=== PATIENT | male | born 1930 | race Caucasian/White ===

== ENCOUNTER → 2017-09-09 | Outpatient (CLI) | payer MEDICARE, OTHER ==
[~2017-09-09] MED LIST: ASPI-1441 PO; ASPI81TA86 PO; AZIT-1 PO; CHOL10005 PO; CLIN300C99 PO; DAR100 PO; FLU IM; FLU45SYR17 IM; KET10 PO; LOSA-37 PO; LOSA-51 PO; LOSA-57 PO; METH4TAB66 PO; METO-259 PO; METO25TA23 PO; METO25TA93 PO; NAP250 PO; OSE75 PO; PNEU0.5D3 IM; SIMV-49 PO; SIMV10TA98 PO; VIT-9 PO; VIT1CAPS38 PO; ZOST19404 SQ
--- NOTE | 2017-09-09 11:17 | RADIOLOGY IMAGING REPORT ---
FACILITY: [facility] PATIENT NAME: Miguel Donis : 1930 MR: [id number] V: [id number] EXAM DATE: ORDERING PHYSICIAN: MILENA SOW TECHNOLOGIST: Location: [facility] Patient: Miguel Donis : 1930 Visit/Account:[id number] Date of Sevice: 09/09/2017 Technique: HIP RIGHT HISTORY: hip pain and low back pain Comparison studies: None FINDINGS: There is no acute fracture. Degenerative changes are noted at the lumbosacral junction, sa croiliac joints and femoroacetabular joints. Specifically within the right hip there is joint space narrowing, sclerosis and marginal osteophytosis. Overall, there is decreased cortical mineralization consistent with osteopenia. IMPRESSION: 1. Degenerative changes as described above. Report Dictated By: Marcellus Zuniga DO at 09/09/2017 11:12 AM Report E-Signed By: Marcellus Zuniga DO at 09/09/2017 11:14 AM WSN:[email or web address]
--- NOTE | 2017-09-09 11:22 | RADIOLOGY IMAGING REPORT ---
FACILITY: [facility] PATIENT NAME: Miguel Donis : 1930 MR: [id number] V: [id number] EXAM DATE: ORDERING PHYSICIAN: MILENA SOW TECHNOLOGIST: Location: [facility] Patient: Miguel Donis : 1930 Visit/Account:[id number] Date of Sevice: 09/09/2017 Technique: LUMBAR SPINE 2 OR 3 VIEW HISTORY: hip pain and low back pain Comparison studies: Lumbar spine radiographs April 2008 FINDINGS: An age-indeterminate compression deformity is noted at the L3 vertebral body. This was not seen on the 2007 comparison radiographs. There is also slight progressive compression of the L4 awa tebral body. Multilevel degenerative changes are noted including endplate osteophytosis and interver tebral disc space narrowing. There is facet arthropathy most pronounced at L5-S1. IMPRESSION: 1. Age-indeterminate compression deformity of the L3 vertebral body and potentially the L4 vertebral body. 2. Degenerative changes as characterized above. Report Dictated By: Marcellus Zuniga DO at 09/09/2017 11:14 AM Report E-Signed By: Marcellus Zuniga DO at 09/09/2017 11:18 AM WSN:[email or web address]
== END ==
LOC: RAD 10:04
PROVIDERS: ATTEND Internal Medicine
DX: M85.88 Other specified disorders of bone density and structure, other site (principal)
CPT/HCPCS: 72100

== ENCOUNTER → 2018-02-04 | Outpatient (CLI) | payer MEDICARE, OTHER ==
[~2018-02-04] MED LIST changes: +MUPI15CR10 TP
[2018-02-04 14:58] LABS: PLATELET COUNT, AUTOMATED 309 K/uL (150-450)
[2018-02-04 15:09] LABS: LDL CHOLESTEROL 50 mg/dl
== END ==
LOC: LAB 14:32
PROVIDERS: ATTEND Internal Medicine
DX: E78.00 Pure hypercholesterolemia, unspecified (principal); I10 Essential (primary) hypertension; T14.8XXA Other injury of unspecified body region, initial encounter
CPT/HCPCS: 36415; 84443; 85025; G0103; 82040; 82247; 82310; 82374; 82435; 82465; 82565; 82947; 83718; 84075; 84132; 84153; 84155; 84295; 84450; 84460; 84478; 84520

== ENCOUNTER → 2018-02-11 | Outpatient (CLI) | payer MEDICARE, OTHER | LOC: LAB 15:26 | PROVIDERS: ATTEND Surgery | DX: C49.9 Malignant neoplasm of connective and soft tissue, unspecified (principal) | CPT/HCPCS: 88305; 88342; 88344 ==

== ENCOUNTER 2018-03-12 00:14 | Observation (INO) | payer MEDICARE, OTHER ==
[~2018-03-12] VITALS: Ht 185.4 cm; Wt 80.3 kg
[2018-03-12] VITALS (15 sets, daily range): BP systolic 87–136; BP diastolic 51–87
[2018-03-12] MEDS ORDERED: FAMOTIDINE 20 MG TAB PO ONE (10:50)
[2018-03-12] MEDS ORDERED: LIDOCAINE/SOD BICARB 8.4% SYR ID ONE (10:50)
[2018-03-12] MEDS ORDERED: ceFAZolin(*) 2GM/D5W 50ML 50 ML IVPB ONE (10:50)
[2018-03-12] MEDS ORDERED: NORMOSOL R SOLN(*) 1000 ML BAG 1,000 ML IV PRN (10:50)
[2018-03-12] MEDS ORDERED: MIDAZOLAM 2 MG/2 ML VIAL IVP PRN (10:50)
[2018-03-12] MEDS ORDERED: METOPROLOL TART 50 MG TAB PO ONE (11:00)
--- NOTE | 2018-03-12 11:03 | EKG ---
FACILITY: [facility] PATIENT NAME: ABRIL SHERIFF : [id number] MR: [id number] V: [id number] EXAM DATE: ORDERING PHYSICIAN: LUPILLO CALVIN TECHNOLOGIST: Test Reason : Blood Pressure : / mmHG Vent. Rate : 081 BPM Atrial Rate : 081 BPM P-R Int : 256 ms QRS Dur : 088 ms QT Int : 414 ms P-R-T Axes : 034 019 034 degrees QTc Int : 480 ms Sinus rhythm with 1st degree AV block with occasional premature ventricular complexes and premature a trial complexes Prolonged QT Abnormal ECG When compared with ECG of 17-NOV-2012 11:49, premature atrial complexes are now present OH interval has increased Confirmed by Yahir Villarreal ([id number]) on 03/12/2018 1:04:51 PM Referred By: Confirmed By:Yahir Reina
[2018-03-12] MEDS ORDERED: DEXAMETHASONE SOD 4 MG/ML VIAL ONE (12:06)
[2018-03-12] MEDS ORDERED: LIDOCAINE MPF 1% 5 ML VIAL ONE (12:06)
[2018-03-12] MEDS ORDERED: PROPOFOL EMUL(*) 10MG/ML 20 ML 20 ML ONE (12:06)
[2018-03-12] MEDS ORDERED: ONDANSETRON 4 MG/2 ML VIAL ONE (12:06)
[2018-03-12] MEDS ORDERED: fentaNYL CITR 100 MCG/2 ML AMP ONE ×2 (12:08→15:07)
[2018-03-12] MEDS ORDERED: ROPIVACAINE 0.5% 20 ML VIAL ONE (13:30)
[2018-03-12] MEDS ORDERED: EPINEPHrine 0.1% NA SOL 30 ML ONE (13:31)
[2018-03-12] MEDS ORDERED: MINERAL OIL LIGHT 10 ML VIAL ONE (13:34)
[2018-03-12] MEDS ORDERED: FLUSH 10 ML SYR IVP PRN (16:05)
[2018-03-12] MEDS ORDERED: NALOXONE HCL 0.4 MG/ML VIAL IVP PRN (16:05)
[2018-03-12] MEDS ORDERED: ACETAMINOPHEN 325 MG TAB PO PRN (16:05)
[2018-03-12] MEDS ORDERED: MORPHINE 2 MG/ML SYR IVP PRN (16:05)
[2018-03-12] MEDS ORDERED: ONDANSETRON 4 MG/2 ML VIAL IVP PRN (16:05)
--- NOTE | 2018-03-12 16:20 | Post Operative Progress Note ---
Post Operative Progress Note Date: Mar 12, 2018 Time: 16:11 Surgeon: Louisa Dictation number: [id number] Anesthesia: LMA by Dr. 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
--- NOTE | 2018-03-12 17:18 | OPERATIVE REPORT 1 ---
EVENT DATE: March 12, 2018 SURGEON: Hola Jasso MD ANESTHESIOLOGIST: Hola Colin MD ANESTHESIA: LMA. PREOPERATIVE DIAGNOSIS Malignant spindle cell tumor/atypical fibroxanthoma, scalp. POSTOPERATIVE DIAGNOSIS Malignant spindle cell tumor/atypical fibroxanthoma, scalp. PROCEDURE PERFORMED Wide local excision of scalp cancer with split-thickness skin graft from left thigh to scalp. COMPLICATIONS None. CONDITION Stable. BLOOD LOSS Minimal. SPECIMENS The primary specimen was sent in permanent fixative. I also sent separate specimens for frozen section of the inferior, superior, left, and right margins. All were negative on frozen section for any invasive cancer involvement. INDICATIONS This is an 87-year-old gentleman who presented to me with a large, ulcerated nodule on his scalp, the junction of the occipital and superior portion of his scalp to his left of midline. I biopsied it, and the biopsy revealed a malignant spindle cell tumor/atypical fibroxanthoma. I discussed this with the patient and recommended wide excision of this. He provided consent for this procedure including a skin graft to cover the resulting defect. DESCRIPTION OF PROCEDURE The patient brought to the operating room, placed supine on the operating table. LMA anesthesia was administered, and he was placed in a right lateral decubitus position secured to the table on a ramirez bag. His left thigh and his scalp were prepped and draped in a sterile fashion. Timeout was completed. I injected 0.5% ropivacaine plain all around the lesion on the scalp, and I also measured for a centimeter all the way around from what I could actually palpate in terms of the nodule. I marked the skin all the way around and then made an incision where I marked it and dissected through the dermis and into the subcutaneous fat. I then undermined this large disk of tissue, and I then passed it off the field. I went into the subcutaneous tissues, but left the galea aponeurotica intact. The tumor did not seem to go down into the galea, and it seemed like I was well deep to it in my dissection. I then made this wound hemostatic with electrocautery and then removed slivers of tissue from the superior margin, inferior margin, left margin, and right margin, and these were sent for frozen section. Ultimately, we got the results back, and they did not see any evidence of invasive cancer or other abnormalities in the margins. I then obtained a 0.016 inch thick 5x5cm split-thickness skin graft from the patient's left thigh after applying mineral oil to the skin, and then I meshed it to a 3:1 ratio. I brought it up to the defect on his scalp and laid it down with the dermis side down. I stretched it out so it laid nice and flat, covered the entire surface, and was adherent to the underlying substrate. I trimmed off the excess and stapled it into place. I then made a bolster with Xeroform filled with cotton balls that were saturated in antibiotic ointment and placed this into the defect overlying the skin graft to help it to adhere to the underlying substrate. Then, I sewed this using 0 silk sutures through the clifford all the way around to hold the bolster in place. I applied epinephrine-soaked gauze to the donor site on the thigh while I was addressing the skin graft on the scalp. After this was done, I placed a Xeroform flat over the donor site and cut it so that it was just over the donor skin and not over normal skin. I then placed 4 x 4 gauze over this and wrapped his leg in Kerlix and an Jcarlos wrap. I wrapped his head in Kerlix and placed a net tube gauze to form a beanie-type cap over his head to hold the dressing in place and protect the graft and bolster. The patient was then placed supine on the table, awakened, and LMA removed. He was transported to the recovery room in stable condition having tolerated the procedure without any apparent problems. SAIRA
[2018-03-12] MEDS ORDERED: SIMVASTATIN 20 MG TAB PO SCH (21:00)
[2018-03-12] MEDS: METOPROLOL TART 50 MG TAB PO SCH (21:00)
[2018-03-12] MEDS: DOCUSATE SODIUM 100 MG CAP PO SCH (21:44)
[2018-03-12] MEDS: FAMOTIDINE 20 MG TAB PO SCH (21:44)
[2018-03-13] VITALS: BP 93/48
[2018-03-13 04:46] VITALS: BP 105/61
[2018-03-13] MEDS ORDERED: DOCU-416 PO (07:14)
--- NOTE | 2018-03-13 07:22 | Short(Outpt) Discharge Summary ---
Discharge Summary Reason for Hosp/Final Diag: (1) Skin cancer of scalp Status: Chronic Hospital Course & Plan: Skin cancer removed from scalp with STSG from left thigh transferred to skin defect in scalp. Pt has done well overnight. Will d/c to home this morning. Departure Discharge to: Home, Self Care Discharge Instructions Home Meds Active Scripts Docusate Sodium (COLACE) 100 Mg Capsule, 1 CAP PO BID, #30 CAP 0 Refills TAKE WITH A FULL GLASS OF WATER Prov:LOU GRIFFIN MD 03/13/18 Metoprolol Tartrate (METOPROLOL TARTRATE) 25 Mg Tablet, 1 TAB PO BID, #180 TAB 3 Refills Prov:MILENA SOW MD 03/02/18 Simvastatin (SIMVASTATIN) 10 Mg Tablet, 1 TAB PO HS, #90 TAB 1 Refill Prov:MILENA SOW MD 10/31/17 Losartan/Hydrochlorothiazide (LOSARTAN-HCTZ 50-12.5 MG TAB) 1 Each Tablet, 1 TAB PO QDAY, #90 TAB 3 Refills Prov:MILENA SOW MD 06/17/17 Reported Medications Vit A/Vit C/Vit E/Zinc/Copper (PRESERVISION AREDS TABLET) 1 Each Tablet, 1 EACH PO DAILY 04/14/14 Aspirin (ASPIRIN EC) 81 Mg Tablet., 1 TAB PO QDAY, TAB 04/14/14 Follow up Referrals: General Surgery - 03/18/18 @ Surgery, General with LOU GRIFFIN MD You have a follow up appointment scheduled with Dr. Griffin on 03/18/18, at 4:15pm. Diet: Regular Activity: As Tolerated Special Instructions: Leave the dressing on your head until I remove it when I see you in my office on Friday of next week. Don't get the dressing wet. If the dressing accidently comes off, you can get a loose but fitting winter cap and wear this to cover and protect the yellow ball of gauze I sewed to the surgery site on your scalp. LOU GRIFFIN MD Mar 13, 2018 07:22
[2018-03-13 07:28] VITALS: BP 117/70
[2018-03-13] MEDS ORDERED: HYDROCHLOROTHIAZIDE 25 MG TAB PO SCH (09:00)
[2018-03-13] MEDS ORDERED: BETA-CAROTENE(A) & E/MIN TAB PO SCH (09:00)
[2018-03-13] MEDS ORDERED: LOSARTAN POTASSIUM 50 MG TAB PO SCH (09:00)
[2018-03-13] MEDS ORDERED: ASPIRIN 81 MG ENTERIC COATED PO SCH (09:00)
[2018-03-13] MEDS: FAMOTIDINE 20 MG TAB PO SCH (09:53)
[2018-03-13] MEDS: DOCUSATE SODIUM 100 MG CAP PO SCH (09:53)
[2018-03-13] MEDS: METOPROLOL TART 50 MG TAB PO SCH (09:54)
== END 2018-03-13 07:13 | disposition home or self-care (01) ==
LOC: OR 00:14 → MED 07:10 → INTOOBSV 07:10
PROVIDERS: ADMIT Surgery; ATTEND Surgery
DX: C44.40 Unspecified malignant neoplasm of skin of scalp and neck (principal); I10 Essential (primary) hypertension
CPT/HCPCS: 11626; 15100; 88305; 88331; 93005; A9270; G0378; J1100; J2001; J2405; J2704; J2795; J3010; J0690

== ENCOUNTER → 2018-06-10 | Outpatient (CLI) | payer MEDICARE, OTHER ==
[~2018-06-10] MED LIST changes: +DOCU-416 PO; +FLU180SY11 IM; +RIVA20TA PO
[2018-06-11 12:44] VITALS: BMI 24.5
== END ==
LOC: AMB 13:10
PROVIDERS: ATTEND Nurse Practitioner
DX: R41.82 Altered mental status, unspecified (principal); R50.9 Fever, unspecified; R44.1 Visual hallucinations
CPT/HCPCS: A0425; A0429

== ENCOUNTER → 2018-09-01 | Outpatient (CLI) | payer MEDICARE, OTHER ==
[2018-06-11 12:44] VITALS: BMI 24.5
[~2018-09-01] MED LIST changes: +FURO-47 PO; +POTA-23 PO
[2018-09-01 16:11] LABS: PLATELET COUNT, AUTOMATED 277 K/uL (150-450)
== END ==
LOC: LAB 15:52
PROVIDERS: ATTEND Internal Medicine
DX: I48.92 Unspecified atrial flutter (principal); I27.20 Pulmonary hypertension, unspecified; I50.9 Heart failure, unspecified; I83.009 Varicose veins of unspecified lower extremity with ulcer of unspecified site
CPT/HCPCS: 36415; 82040; 82247; 82310; 82374; 82435; 82565; 82947; 83880; 84075; 84132; 84155; 84295; 84443; 84450; 84460; 84520; 84550; 85025

== ENCOUNTER → 2018-09-16 | Outpatient (CLI) | payer MEDICARE, OTHER ==
[2018-06-11 12:44] VITALS: BMI 24.5
[~2018-09-16] MED LIST changes: +FURO-45 PO; +LOSA50TA80 PO
[2018-09-16 15:46] LABS: PLATELET COUNT, AUTOMATED 363 K/uL (150-450)
== END ==
LOC: LAB 15:22
PROVIDERS: ATTEND Internal Medicine
DX: I48.92 Unspecified atrial flutter (principal); I50.9 Heart failure, unspecified; I27.20 Pulmonary hypertension, unspecified; I83.009 Varicose veins of unspecified lower extremity with ulcer of unspecified site
CPT/HCPCS: 36415; 82040; 82247; 82310; 82374; 82435; 82565; 82947; 83880; 84075; 84132; 84155; 84295; 84450; 84460; 84520; 84550; 85025

== ENCOUNTER → 2018-10-14 | Outpatient (CLI) | payer MEDICARE, OTHER ==
[2018-06-11 12:44] VITALS: BMI 24.5
[~2018-10-14] MED LIST changes: +ALLO100T70 PO; +PRED-420 PO
[2018-10-14 16:39] LABS: PLATELET COUNT, AUTOMATED 294 K/uL (150-450)
== END ==
LOC: LAB 16:17
PROVIDERS: ATTEND Internal Medicine
DX: I83.009 Varicose veins of unspecified lower extremity with ulcer of unspecified site (principal); I27.20 Pulmonary hypertension, unspecified; I50.9 Heart failure, unspecified; M1A.9XX1 Chronic gout, unspecified, with tophus (tophi); M10.9 Gout, unspecified; B96.89 Other specified bacterial agents as the cause of diseases classified elsewhere
CPT/HCPCS: 36415; 82040; 82247; 82310; 82374; 82435; 82565; 82947; 83880; 84075; 84132; 84155; 84295; 84450; 84460; 84520; 84550; 85025; 87070; 87077; 87186

== ENCOUNTER → 2018-12-09 | Outpatient (REF) | payer MEDICARE, OTHER ==
[2018-06-11 12:44] VITALS: BMI 24.5
[~2018-12-09] MED LIST changes: +SULF-198 PO
== END ==
LOC: ZZSENDIN 13:13
PROVIDERS: ATTEND Internal Medicine
DX: I50.9 Heart failure, unspecified (principal); I10 Essential (primary) hypertension
CPT/HCPCS: 81001; 82040; 82247; 82310; 82374; 82435; 82565; 82947; 84075; 84132; 84155; 84295; 84450; 84460; 84520; 85027

== ENCOUNTER 2019-01-03 18:54 | Emergency (ER) | payer MEDICARE, OTHER ==
[2018-06-11 12:44] VITALS: Wt 88.5 kg
--- NOTE | 2019-01-03 19:04 | ER Report ---
History and Physical Time Seen By : 19:01 HPI/ROS CHIEF COMPLAINT: Hallucinations HISTORY OF PRESENT ILLNESS: 88-year-old male patient presents to emergency room with complaint of hallucinations. Patient has been having hallucinations for the past few days. He states that he has been seeing cats. He did call his grandson, as he is unable to get a hold of his son. He states that he received cats all over the house. The son states that his son called him and he went and picked his father. He states that at that time he was convinced that her cats everywhere. The son denies that the patient hasn't had any fevers, chills, nausea, vomiting or diarrhea. He states that they did eat brunch together today at about 11:00 and he ate very well. He states is not had any diarrhea. The patient states he's been having a cough. He denies any shortness of breath but states he has been coughing up some mucus. REVIEW OF SYSTEMS: Respiratory: As noted above Cardiovascular: No chest pain, no palpitations. Gastrointestinal: No vomiting, no abdominal pain. Musculoskeletal: No back pain. Allergies: Coded Allergies: Tetanus Vaccines and Toxoid (Verified Allergy, Mild, 07/10/16) Home Meds Active Scripts Allopurinol (ALLOPURINOL) 100 Mg Tablet, 100 MG PO QDAY, #30 TAB 3 Refills Prov:MILENA PELLETIER MD 10/15/18 Furosemide (FUROSEMIDE) 40 Mg Tablet, 1 TAB PO QDAY, #30 TAB 3 Refills Prov:MILENA PELELTIER MD 10/15/18 Potassium Chloride (KLOR-CON 10) 10 Meq Tablet.er, 10 MEQ PO QODAY, #30 TAB 2 Refills Prov:MILENA PELLETIER MD 09/16/18 Losartan Potassium (LOSARTAN POTASSIUM) 50 Mg Tablet, 50 MG PO QDAY, #90 TAB 3 Refills Prov:MILENA PELLETIER MD 09/16/18 Rivaroxaban 20 Mg (XARELTO 20 MG) 20 Mg Tablet, 20 MG PO DAILY, #90 TAB 3 Refills Prov:MILENA EPLLETIER MD 07/17/18 Simvastatin (SIMVASTATIN) 10 Mg Tablet, 1 TAB PO HS, #90 TAB 3 Refills Prov:MILENA PELLETIER MD 07/17/18 Metoprolol Tartrate (METOPROLOL TARTRATE) 25 Mg Tablet, 1 TAB PO BID, #180 TAB 3 Refills Prov:MILENA PELLETIER MD 07/17/18 Discontinued Reported Medications Vit A/Vit C/Vit E/Zinc/Copper (PRESERVISION AREDS TABLET) 1 Each Tablet, 1 EACH PO DAILY 04/14/14 Past Medical/Surgical History Patient has a past medical history of A. fib, hypertension, hyperlipidemia, arthritis, ankle fracture, macular degeneration, skin cancer. Patient has a surgical history of inguinal hernia repair, appendectomy, cataract surgery, skin cancer removed. Reviewed Nurses Notes: Yes Hx Smoking: Yes Smoking Status: Former Smoker Hx Substance Use Disorder: No Hx Alcohol Use: No Constitutional Vital Sign - Last 24 Hours 01/03/19 01/03/19 01/03/19 01/03/19 19:04 19:15 19:30 19:50 Temp 97.5 Pulse 73 71 Resp 20 B/P (MAP) 126/65 Pulse Ox 88 88 98 O2 Delivery Room Air Room Air Nasal Cannula O2 Flow Rate 2.0 2 01/03/19 01/03/19 01/03/19 01/03/19 19:51 19:56 20:00 20:06 Pulse 69 71 B/P (MAP) 103/62 (76) 108/69 (82) Pulse Ox 97 96 O2 Delivery Nasal Cannula Nasal Cannula O2 Flow Rate 2 2 01/03/19 01/03/19 01/03/19 01/03/19 20:16 20:30 21:00 21:21 Pulse 70 64 58 68 B/P (MAP) 107/62 (77) 108/65 (79) Pulse Ox 97 97 92 92 O2 Delivery Nasal Cannula Nasal Cannula Nasal Cannula Nasal Cannula O2 Flow Rate 2 2 2 2 01/03/19 21:30 Pulse 68 B/P (MAP) 105/63 (77) Pulse Ox 96 O2 Delivery Nasal Cannula O2 Flow Rate 2 Physical Exam General Appearance: The patient is alert, has no immediate need for airway p rotection and no current signs of toxicity. Respiratory: Chest is non tender, lungs are clear to auscultation. Cardiac: regular rate and rhythm Gastrointestinal: Abdomen is soft and non tender, no masses, bowel sounds normal. Musculoskeletal: Neck: Neck is supple and non tender. Extremities have full range of motion and are non tender. Skin: No rashes or lesions. Neuro: Patient is alert and oriented to self, location and time. Cranial nerves II through XII grossly intact. DIFFERENTIAL DIAGNOSIS: After history and physical exam differential diagnosis was considered for altered mental status including but not limited to hypoglycemia, infectious process, electrolyte abnormality, head injury and intoxicants. Medical Decision Making Data Points Result Diagram: 01/03/19191901/03/191919 Laboratory Hematology Test 01/03/19 19:20 White Blood Count 8.4 k/uL (4.5-11.0) Red Blood Count 4.59 M/uL (4.00-5.60) Hemoglobin 15.4 g/dL (14.0-18.0) Hematocrit 45.3 % (42.0-52.0) Mean Corpuscular Volume 98.8 fL (80.0-96.0) H Mean Corpuscular Hemoglobin 33.5 pg (26.0-33.0) H Mean Corpuscular Hemoglobin Concent 33.9 g/dL (32.0-36.0) Red Cell Distribution Width 15.9 % (11.5-14.5) H Platelet Count 286 K/uL (150-450) Mean Platelet Volume 7.4 fL (7.2-11.1) Neutrophils (%) (Auto) 76.1 % (39.4-72.5) H Lymphocytes (%) (Auto) 11.6 % (17.6-49.6) L Monocytes (%) (Auto) 10.9 % (4.1-12.4) Eosinophils (%) (Auto) 0.7 % (0.4-6.7) Basophils (%) (Auto) 0.7 % (0.3-1.4) Nucleated RBC Relative Count (auto) 0.0 /100WBC Neutrophils # (Auto) 6.4 K/uL (2.0-7.4) Lymphocytes # (Auto) 1.0 K/uL (1.3-3.6) L Monocytes # (Auto) 0.9 K/uL (0.3-1.0) Eosinophils # (Auto) 0.1 K/uL (0.0-0.5) Basophils # (Auto) 0.1 K/uL (0.0-0.1) Nucleated RBC Absolute Count (auto) 0.00 K/uL Chemistry Test 01/03/19 19:18 7/21/19 19:20 01/03/19 21:45 Whole Blood Glucose 105 mg/DL (75-110) Sodium Level 137 mmol/L (137-145) Potassium Level 4.1 mmol/L (3.5-5.0) Chloride Level 101 mmol/L (98-107) Carbon Dioxide Level 24 mmol/L (22-30) Blood Urea Nitrogen 28 mg/dl (9-21) Creatinine 0.90 mg/dl (0.66-1.25) Glomerular Filtration Rate Calc > 60.0 Random Glucose 100 mg/dl (75-110) Calcium Level 9.1 mg/dl (8.4-10.2) Total Bilirubin 1.1 mg/dl (0.2-1.3) Aspartate Amino Transf (AST/SGOT) 31 U/L (0-35) Alanine Aminotransferase (ALT/SGPT) 32 U/L (0-56) Alkaline Phosphatase 79 U/L (0-126) Ammonia < 9 UMOL/L (9-33) Total Protein 6.4 g/dl (6.3-8.2) Albumin 3.7 g/dl (3.5-5.0) Troponin I 0.040 ng/ml Toxicology Test 01/03/19 18:59 01/03/19 19:20 Urine Opiates Screen Negative Urine Barbiturates Screen Negative Ur Tricyclic Antidepressants Screen Negative Urine Phencyclidine Screen Negative Urine Amphetamines Screen Negative Urine Benzodiazepines Screen Negative Urine Cocaine Screen Negative Urine Cannabinoids Screen Negative Serum Alcohol < 10 mg/dl Urinalysis Test 01/03/19 18:59 Urine Color Yellow Urine Clarity Clear Urine pH 5.0 pH (4.8-9.5) Urine Specific [place] 1.021 Urine Protein Negative mg/dL (NEGATIVE) Urine Glucose (UA) Negative mg/dL (NEGATIVE) Urine Ketones Trace mg/dL (NEGATIVE) Urine Blood Negative (NEGATIVE) Urine Nitrite Negative (NEGATIVE) Urine Bilirubin Negative (NEGATIVE) Urine Urobilinogen 2.0 mg/dL (0.2-1.9) Urine Leukocyte Esterase Negative (NEGATIVE) Urine RBC 3 /HPF (0-2/HPF) Urine WBC 1 /HPF (0-5/HPF) Urine Squamous Epithelial Cells None /LPF (</=FEW) Urine Bacteria Negative /HPF (NONE-FEW) Urine Hyaline Casts Few /LPF (NONE-FEW) Urine Mucus Few /HPF (NONE-FEW) EKG/Imaging EKG Interpretation 12 lead EKG: Rhythm: Atrial flutter with variable AV block, PVC, ventricular rate of 68 bpm [place]: normal QRS: normal ST segments: normal Imaging CHEST SINGLE AP Indication: Mental status change. Comparison: 06/10/2018 Findings: Heart size within normal limits. There is no focal infiltrate or lobar consolidation. No pneumothorax or pleural effusion. IMPRESSION: 1. No acute cardiopulmonary process. Stable appearance of the chest. Report Dictated By: IGOR HUA at 01/03/2019 8:07 PM Report E-Signed By: IGOR HUA at 01/03/2019 8:08 PM EXAMINATION: CT head without IV contrast HISTORY: Confusion and hallucinations COMPARISON: CT scan 06/10/2018 TECHNIQUE: Contiguous axial images were obtained from the skull base to the vertex without intravenous contrast. Sagittal and coronal reformatted images are also submitted. One of the following dose optimization techniques was utilized in the performance of this exam: Automated exposure control; adjustment of the mA and/or kV according to the patient's size; or use of an iterative reconstruction technique. Specific details can be referenced in the facility's radiology CT exam operational policy. FINDINGS: Brain volume: Moderate generalized atrophy with associated concordant prominence of the ventricular system. Ventricles: Normal. Acute ischemic changes: None. Hemorrhage: None. Masses/edema: None. Ilnd-white: Negative. White matter: No significant change in low-density changes in hemispheric white matter.. Vessels: Calcified plaque of the vertebral arteries and carotid siphons at the skull base. Extra-axial: Negative. Calvarium/scalp: Negative. Skull base/visualized face: Negative. Visualized sinuses/orbits: Low-density material, presumably a prosthetic, again noted overlying the left globe. Advanced degenerative changes of the visualized upper cervical spine noted. IMPRESSION: 1. No acute injury identified. 2. Atrophy, atherosclerotic disease and chronic appearing low-density white matter changes likely related to age and vascular risk factors. Report Dictated By: IGOR HUA at 01/03/2019 8:02 PM Report E-Signed By: IGOR HUA at 01/03/2019 8:07 PM ED Course/Re-evaluation ED Course Patient is admitted and examined, history and physical were obtained. Differential diagnoses were considered. On examination lungs are clear, heart is irregular. An IV was started, CBC, CMP, troponin, EKG, chest x-ray, urinalysis, drug screen were done. The labs were unremarkable. Troponin came back indeterminate at 0.038. A repeat troponin was done after 2 and half hours. At that time it came back at 0.04. I discussed the case with barbra Pandey. He felt that there is not a medical cause for the hallucinations. He did not feel there any medications be changed or any infectious cause versus underlying. His recognition was to discuss the case with psychiatry. I discussed discussed the case with Dr. Pinedo, psychiatrist. She felt there was not a psychiatric cause for this. I discussed the results of the labs as well as my discussions with both the hospitalist and the psychiatrist. With it and not feeling that there is any metabolic cause we will go ahead and discharge him home. They're to follow-up with their primary care provider tomorrow. In the meantime they're to continue with normal medications. I did discuss with the patient's son that the patient does appear to have H considerably since his passed. I do wonder if there is a loss of purpose since his passed which is affecting his health. We discussed that the patient should follow-up with his primary care provider to make a plan moving forward. Decision to Disposition Date: Jan 03, 2019 Decision to Disposition Time: 23:46 Depart Departure Latest Vital Signs Vital Signs Date Time Temp Pulse Resp B/P (MAP) Pulse Ox O2 Delivery O2 Flow Rate FiO2 01/03/19 21:30 68 105/63 (77) 96 Nasal Cannula 2 01/03/19 19:04 97.5 20 Impression: Primary Impression: Hallucinations Condition: Improved Disposition: HOME OR SELF-CARE Referrals: MILENA PELLETIER MD (PCP) Patient Instructions: Nonpsychiatric Hallucinations (ED) Additional Instructions: Increase fluid intake. Get plenty of rest. Follow up with Dr. Pelletier, call tomorrow to make an appointment. Discuss the hallucinations that you are having and talk about rodent exterminator plan. Return to the ER if condition worsens. Continue with current medications. MELIZA FREEMAN Jan 03, 2019 19:04
[2019-01-03] MEDS ORDERED: NS(*) 0.9% 500 ML BAG 500 ML IV ONE (19:12)
--- NOTE | 2019-01-03 19:31 | EKG ---
FACILITY: [facility] PATIENT NAME: ABRIL SHERIFF : [id number] MR: [id number] V: [id number] EXAM DATE: ORDERING PHYSICIAN: MELIZA FREEMAN TECHNOLOGIST: HADLEY Test Reason : HALLUCINATIONS Blood Pressure : / mmHG Vent. Rate : 068 BPM Atrial Rate : 272 BPM P-R Int : 000 ms QRS Dur : 082 ms QT Int : 442 ms P-R-T Axes : 000 019 036 degrees QTc Int : 469 ms Atrial flutter with variable AV block with PVC Abnormal ECG When compared with ECG of 10-JUN-2018 15:01, Relatively unchanged Confirmed by HAL SIFUENTES ([id number]) on 01/03/2019 9:40:54 PM Referred By: Confirmed By:HAL SIFUENTES
[2019-01-03 19:34] LABS: PLATELET COUNT, AUTOMATED 286 K/uL (150-450)
--- NOTE | 2019-01-03 20:13 | RADIOLOGY IMAGING REPORT ---
FACILITY: [facility] [place] PATIENT NAME: Miguel Donis : 1930 MR: [id number] V: [id number] EXAM DATE: ORDERING PHYSICIAN: MELIZA FREEMAN TECHNOLOGIST: Location: [facility] Patient: Miguel Donis : 1930 Visit/Account:[id number] Date of Sevice: 01/03/2019 EXAMINATION: CT head without IV contrast HISTORY: Confusion and hallucinations COMPARISON: CT scan 06/10/2018 TECHNIQUE: Contiguous axial images were obtained from the skull base to the vertex without intraven ous contrast. Sagittal and coronal reformatted images are also submitted. One of the following dose optimization techniques was utilized in the performance of this exam: Autom ated exposure control; adjustment of the mA and/or kV according to the patient's size; or use of an i terative reconstruction technique. Specific details can be referenced in the facility's radiology C T exam operational policy. FINDINGS: Brain volume: Moderate generalized atrophy with associated concordant prominence of the ventricular system. Ventricles: Normal. Acute ischemic changes: None. Hemorrhage: None. Masses/edema: None. Lind-white: Negative. White matter: No significant change in low-density changes in hemispheric white matter.. Vessels: Calcified plaque of the vertebral arteries and carotid siphons at the skull base. Extra-axial: Negative. Calvarium/scalp: Negative. Skull base/visualized face: Negative. Visualized sinuses/orbits: Low-density material, presumably a prosthetic, again noted overlying the left globe. Advanced degenerative changes of the visualized upper cervical spine noted. IMPRESSION: 1. No acute injury identified. 2. Atrophy, atherosclerotic disease and chronic appearing low-density white matter changes likely re lated to age and vascular risk factors. Report Dictated By: IGOR HUA at 01/03/2019 8:02 PM Report E-Signed By: IGOR HUA at 01/03/2019 8:07 PM WSN:[email or web address]
--- NOTE | 2019-01-03 20:15 | RADIOLOGY IMAGING REPORT ---
FACILITY: [facility] [place] PATIENT NAME: Miguel Donis : 1930 MR: [id number] V: [id number] EXAM DATE: ORDERING PHYSICIAN: MELIZA FREEMAN TECHNOLOGIST: Location: [facility] Patient: Miguel Donis : 1930 Visit/Account:[id number] Date of Sevice: 01/03/2019 CHEST SINGLE AP Indication: Mental status change. Comparison: 06/10/2018 Findings: Heart size within normal limits. There is no focal infiltrate or lobar consolidation. No pneumothorax or pleural effusion. IMPRESSION: 1. No acute cardiopulmonary process. Stable appearance of the chest. Report Dictated By: IGOR HUA at 01/03/2019 8:07 PM Report E-Signed By: IGOR HUA at 01/03/2019 8:08 PM WSN:[email or web address]
[2019-01-03 23:30] VITALS: BP 100/67
== END 2019-01-04 00:03 | disposition home or self-care (01) ==
LOC: ER 19:00
DX: R44.1 Visual hallucinations (principal); E78.5 Hyperlipidemia, unspecified; I10 Essential (primary) hypertension; Z87.891 Personal history of nicotine dependence; Z79.899 Other long term (current) drug therapy
CPT/HCPCS: 36416; 70450; 71045; 80305; 81001; 82140; 82948; 84484; 85025; 87088; 93005; 96360; 99285; G0480; J7040; 80320; 82040; 82247; 82310; 82374; 82435; 82565; 82947; 84075; 84132; 84155; 84295; 84450; 84460; 84520

== ENCOUNTER → 2019-02-02 | Outpatient (CLI) | payer MEDICARE, OTHER ==
[2018-06-11 12:44] VITALS: BMI 24.5
[~2019-02-02] MED LIST changes: +VIT1CAPS34 PO
== END ==
LOC: AMB 17:48
PROVIDERS: ATTEND Nurse Practitioner
DX: M25.552 Pain in left hip (principal); R00.0 Tachycardia, unspecified
CPT/HCPCS: A0425; A0427